=== PATIENT | female | born 1990 | race Caucasian/White ===

== ENCOUNTER 2020-12-19 22:46 | Inpatient (IN) | payer OTHER, MEDICAID, SELFPAY ==
[2020-12-19 23:50] VITALS: BMI 25.0
[2020-12-20 00:26] VITALS: BP 115/65; PULSE 70; RESP 16; TEMP 37; O2SAT 98
--- NOTE | 2020-12-20 02:41 | PC.ADMIT ---
Pt is a 30 years old female, transferred to the Behavioral Health Unit with concerns of SI. TOX negative, Covid negative, VSS, Pt is alert and oriented X3, Pt appears disheveled with grooming and poor hygiene. Pt is calm and cooperative, answers all questions. Speech is clear with normal rhythm. Pt reports overdosing on 50(100mg) seroquel following a post depression. She denies current HI/SI, plan or intent. Pt reports that sleep and appetite has been poor. Pt has a breast pump that is kept at the nurses station.
[2020-12-20 06:00] VITALS: BP 122/79; PULSE 86; RESP 16; TEMP 36.2; O2SAT 98
[2020-12-20] MEDS: Acetaminophen 325 MG TABLET 650 MG PO (10:03)
--- NOTE | 2020-12-20 12:57 | HO.PSYADMNOT ---
HPI Date of Service: 12/20/20 Chief Complaint: Schizophrenia, unspecified Sources of Information: patient interviewed, chart reviewed and crisis/core team assessment reviewed HPI Subjective Notes: Chen Warning and Conditional Voluntary Narrative: Patient is a 30-year-old female with history of schizoaffective disorder currently depressed who presents for worsening depression 3 weeks and ongoing auditory hallucinations and paranoid delusions. Patient reports that prior to getting she was doing overall okay though still depressed. During her pregnancies she would have periodic bouts of depression that lasted at least a week during which time she would smoke feeling she did not care about anything. During these time she continued to have intermittent auditory hallucinations and paranoid thoughts that she was being persecuted by former coworkers. Patient reports that she delivered her baby girl without complications about 3 weeks ago. Since then she has been feeling very depressed, numb and though she has been trying hard to take care of her baby she has felt her mind is in a ?haze... [Her] eyes are burning and [that her] head hurts; her providers have told her that such headaches are most likely due to psychosis since tylenol does not relieve it. Patient was trying to breast-feed but it was a very difficult struggle and she could not produce enough breast milk. Her boyfriend was very upset about this kept pressuring her to breastfeed. Patient started feeling like she was not able to connect very much with her baby. She started feeling like she is not good at being a mother, not doing a good job with her baby or other residential treatment counselor; her mother and brother and sister and friends offered to help but patient has a hard time accepting. Patient is under the delusion that no one really cares about her even though they say they do; she thinks they are likely lying to her. Patient's depression worsened and she took an overdose of Seroquel to end her life prompting this admission. Patient says she concluded that people would be better off without her anyway, including her baby; she still maintains this. Patient explains that about 5 years ago she had a psychotic break and was hospitalized for several weeks. She was started on olanzapine but never took it since she did not like the way it made her felt, overly tired. During that time she started having the delusion that she had done something wrong at her [employer] job which angered her coworkers who have since tried to get back at her and are somehow able to make her feel stupid, give her mental illness and make her life difficult. Patient has no idea what crime she committed but is sure she did something bad and that this is ongoing persecution from these coworkers. Patient has auditory hallucinations that say she is retarded... The mother does not like her... That her father hates her... That she is a child molester... And what did you do to your family to which she is not sure if the references her biological family or [employer] coworkers. Patient reports that both auditory hallucinations and delusional thinking occur even during times when her mood is good and stable. Patient lacks insight and thinks that these delusions are most likely true and has very difficult time entertaining it might be due to the illness; however she does believe she has schizophrenia. Patient also endorses a history of manic episodes where she went 4 days without sleep was talking fast and had a racing mind. Patient denies any alcohol or drug abuse; patient denies any history of trauma. Of note her father sold his house, bought an Jelli and left town, traveling the country this past October, right before patient gave . Patient reports she has only been on Prozac for treatment of depression; said it helped some Past Psychiatric History: last admission January 2020 at [facility] admission 5 years ago for psychotic break Medical Evaluation Reviewed: Hospitalist Sugaral Pending Labs reviewed which are within normal limits including electrolytes, CBC, liver, BUN creatinine, and negative U tox, negative [facility] Medical History (Updated 12/20/20 @ 15:27 by Rajesh Oh MD) Schizoaffective disorder, depressive type Family History: Deferred Social History: Lives with boyfriend who is supportive; she has been together with him for 10 years Mother lives almost next door and is very supportive Has a brother and he is for supportive Patient finished high school; was going to go on to college however decided not to anxious about being away from home Substance History: Denies Trauma History: Denies Diagnostics Vital Signs (24Hr): Vital Signs - 24 hr 12/20/20 00:26 12/20/20 06:00 Temperature 98.6 F 97.1 F Pulse Rate 70 86 Respiratory Rate 16 16 Blood Pressure 115/65 122/79 Pulse Oximetry 98 98 Body Mass Index 25.0 Meds/Allergies Meds Home Medications Acetaminophen (Acetaminophen 325 Mg Tablet) 650 mg PO Q6H PRN PRN Reason: Headache/Pain Mild Scale (1-3) Last Admin: 12/20/20 10:03 Dose: 650 mg Documented by: Al Hydroxide/Mg Hydroxide (Magnesium Hydrox/Alum Hydrox 30 Ml Oral.Susp) 30 ml PO Q6H PRN PRN Reason: Heartburn/Nausea Fluoxetine HCl (Fluoxetine Hcl 20 Mg Capsule) 40 mg PO DAILY IVAN Hydroxyzine HCl (Hydroxyzine Hcl 25 Mg Tablet) 25 mg PO Q6H PRN PRN Reason: Anxiety Magnesium Hydroxide (Milk Of Magnesia 30 Ml Oral.Susp) 30 ml PO DAILY PRN PRN Reason: Constipation Risperidone (Risperidone 1 Mg Tablet) 1 mg PO BID IVAN Trazodone HCl (Trazodone Hcl 50 Mg Tablet) 50 mg PO BEDTIME PRN PRN Reason: Insomnia Allergies Allergies Allergy/AdvReac Type Severity Reaction Status Date / Time No Known Allergies Allergy Unverified 12/20/20 01:18 Mental Status Exam Mental Status Exam Narrative: Pt is alert and oriented; behavior is cooperative, friendly and calm; patient is in emotional distress intermittently tearful; dressed in casual attire with pink hair; adequate hygiene; mood is described as depressed and affect downcast, tearful and anxious; eye contact appropriate; Speech is lowered volume but normal rate and prosody and not pressured; some psychomotor retardation present; thought process is organized and goal directed; Thought content is on delusional content, being persecuted; SI thinking others are better off without her; No HI; AH of voices saying mean things; Patients insight and judgment impaired Assessment & Plan Assessment & Plan (1) Schizoaffective disorder, depressive type: Status: Acute Code(s): F25.1 - Schizoaffective disorder, depressive type Assessment and Plan: IMPRESSION: Patient is a 30-year-old female with history of schizoaffective disorder currently depressed who presents for worsening depression 3 weeks and ongoing auditory hallucinations and paranoid delusions. Patient meets criteria for schizoaffective disorder since her psychotic symptoms are present even during times of good/stable mood; patient also has history of manic episodes. Patient's depression and psychotic symptoms seem to have worsened . Patient was only recently started on Seroquel and a low dose which made her tired. Patient remains with auditory hallucinations and paranoid, persecutory delusions. She volunteers that she has schizophrenia and wants treatment for this, however she currently lacks the insight to connect her psychotic symptoms with her illness and currently believes delusions are true. Patient wants to remain on Prozac saying she used to be at 60 mg and found it helpful to for depression Patient agrees to starting Risperdal. She is concerned about medications that make her tired. Biometric Technician discussed risks and side effects of Risperdal and antipsychotic medications to which patient understands and wants to proceed with trial. Discussed possible trial of Haldol instead of Risperdal since it may be less sedating however patient agreed to Risperdal; considered Abilify and Shonda however opted for higher potency antipsychotic PLAN: Patient on CV Q 15 minutes checks Start Risperdal 1 mg b.i.d.; will likely need to titrate. Patient will try for now and see if it is too sedating; if so recommend switching to Haldol (though Geodon and Abilify are options) Restart Prozac; consider titrating to 60 Discontinue Seroquel; too sedating patient does not like Reason for continued inpatient stay Substantial Risk for: harm to self and rapid decompensation
[2020-12-20] MEDS: risperiDONE 1 MG TABLET PO ×2 (13:26→21:11)
[2020-12-20] MEDS: FLUoxetine HCl 20 MG CAPSULE PO (13:26)
[2020-12-20 18:00] VITALS: BP 109/54; PULSE 63; RESP 15; TEMP 37; O2SAT 98
[2020-12-20 21:08] VITALS: BP 118/70; PULSE 66; RESP 16
[2020-12-21 07:00] VITALS: BMI 24.8
[2020-12-21] MEDS: FLUoxetine HCl 20 MG CAPSULE 40 MG PO (08:50)
[2020-12-21] MEDS: risperiDONE 1 MG TABLET PO ×2 (08:50→21:04)
[2020-12-21 09:55] VITALS: BP 130/69; PULSE 93; TEMP 35.9; O2SAT 98
--- NOTE | 2020-12-21 13:43 | P.CONIM_ITS ---
History of Present Illness Data of Consult Service Date: 12/21/20 Primary Care Provider: Unknown Physician HPI Reason for consult: Routine Medical H&P The patient is a 30 yo F with no significant past medical history who is admitted to the inpatient psychiatric unit. Medical consultation requested for routine Medical H&P per protocol. Patient is seen and examined in her room. She is sitting comfortably reading her book. She denies any current complaints other than a minor upset stomach after eating. She denies any pain , nausea/vomiting. Review of Systems 2 Review of Systems: General - no fevers or chills Cardiovascular - no chest pain Respiratory - no shortness of breath or cough Abdominal- no abdominal pain, nausea, vomiting, diarrhea Yes all other systems are reviewed and are negative (psych ROS per psychiatrist) [facility] Medical History Schizoaffective disorder, depressive type Pertinent family history: mental health in her father Surgical History No pertinent past surgical history Social History Household Members: Friend(s) Household Members Other:: 1 Housing: Apartment Do you presently have visiting nurse or other home services: No Patient Tobacco Use Status: Current someday Tobacco user Tobacco use type: Cigarette Cigarette Packs Per Day: 0 Cigarettes Per Day: 5 Years Smoked: 11 Smoked in Last 30 Days: Yes Patient Interested in Nicotine Replacement: No Patient Given Instructions on How to Stop Smoking: Yes Date Education Initiated: 12/20/20 Second Hand Smoke Exposure: No Use of substances other than those prescribed or required for medical reasons: No Currently Displaying Signs/Symptoms of Drug Intoxication Withdrawal: No Any prior treatment program specific to substance use: No Have you been hit, kicked, punched, or otherwise hurt by someone within the past year? If so, by whom?: No Do you feel safe in your current relationship?: Yes Is there a partner from a previous relationship who is making you feel unsafe now?: No Are you made to feel afraid or neglected: No Spiritual Healthcare Practices: N/A Cheondoism Healthcare Practices: N/A Cultural Healthcare Practices: N/A Advance Directives: No Advance Directives Information Provided: No (declined) Advance Directives on File: No Do you have thoughts of harming others: None Do you have a plan to hurt others: No Plan Recently lost weight without trying: No Nutrition Risks: No Nutritional Risk Patient : No : Yes Poor oral hygiene: No service: No Sexual orientation: Straight/Heterosexual Meds Allergies Allergy/AdvReac Type Severity Reaction Status Date / Time No Known Allergies Allergy Unverified 12/20/20 01:18 Active Medications: Current Medications Acetaminophen (Acetaminophen 325 Mg Tablet) 650 mg PO Q6H PRN PRN Reason: Headache/Pain Mild Scale (1-3) Last Admin: 12/20/20 10:03 Dose: 650 mg Documented by: Al Hydroxide/Mg Hydroxide (Magnesium Hydrox/Alum Hydrox 30 Ml Oral.Susp) 30 ml PO Q6H PRN PRN Reason: Heartburn/Nausea Fluoxetine HCl (Fluoxetine Hcl 20 Mg Capsule) 40 mg PO DAILY [facility] Last Admin: 12/21/20 08:50 Dose: 40 mg Documented by: Hydroxyzine HCl (Hydroxyzine Hcl 25 Mg Tablet) 25 mg PO Q6H PRN PRN Reason: Anxiety Magnesium Hydroxide (Milk Of Magnesia 30 Ml Oral.Susp) 30 ml PO DAILY PRN PRN Reason: Constipation Risperidone (Risperidone 1 Mg Tablet) 1 mg PO BID [facility] Last Admin: 12/21/20 08:50 Dose: 1 mg Documented by: Trazodone HCl (Trazodone Hcl 50 Mg Tablet) 50 mg PO BEDTIME PRN PRN Reason: Insomnia Physical Exam Vital Signs and Narrative: Vital Signs: Last Vital Signs Temp 96.6 F L 12/21/20 09:55 Pulse 93 12/21/20 09:55 Resp 16 12/20/20 21:08 BP 130/69 12/21/20 09:55 Pulse Ox 98 12/21/20 09:55 Body Mass Index 24.8 Const: Other: Constitutional - Awake and Alert, No apparent distress Eyes - PERRLA, EOMI Cardiovascular - S1S2, RRR, No edema Respiratory - Normal lung expansion, Normal respiratory effort, No respiratory distress, CTA bilaterally Gastrointestinal - NT / ND; +BS; No rebound or guarding - No CVA tenderness Extremities - no calf tenderness bilaterally, no swelling Musculoskeletal - Normal inspection, normal ROM Skin - Warm/Dry Neurological - Alert & oriented x3, No focal deficit; CN 2-12 in tact bilaterally Assessment and Plan (1) Routine medical exam: Status: Acute This is a 30 yo F with no significant PMH who is admitted to the inpatient psychiatric unit. Medical consult requested for routine medical H&P per protocol. Patient does not appear to have any chronic nor active medical problems. Continue psychiatric care as you are doing. Have advised patient on age appropriate health screening which she should complete as an outpatient. Will sign off the case. Please reconsult PRN.
[2020-12-21] MEDS: Magnesium Hydrox/Alum Hydrox 30 ML ORAL.SUSP PO (14:23)
--- NOTE | 2020-12-21 17:53 | P.PNPSI_ITS ---
Subjective Subjective Date of Service: 12/21/20 Reason For Visit: Schizophrenia, unspecified Subjective Notes: Conditional Voluntary Interim History: Reports tolerating regime. Frustrated with being admitted as I need to wait for everything. 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 Reports they have been in place for several months are bilateral behind her temples and she feels they have not been in good control. She has relief with pressure and has light sensitivity yet denies migraine. She reports she drinks 2-3 cups of coffee daily and this does not assist with relief of pain, nor does tylenol. Medication Compliance: Yes Side effects from medications: No Attending Groups: Intermittent Review of Systems Acute medical concerns: No Medical Review of Systems: unchanged Review of Systems Constitutional: Reports headache(s) (long term acute care registered nurse, not a med SE) Reports headache(s) (long term acute care registered nurse, not a med SE) Reports headache(s) (assisted, not a med SE) Psychiatric: Reports abnormal sleep pattern, Reports anxiety, Reports depression, Reports difficulty concentrating, Reports hopelessness, Reports irritability, Reports anhedonia and Reports suicidal ideation (reports she is not suicidal on the unit at this time) Mental Status Exam Mental Status Exam Patient Appearance: Appropriate Patient Orientation: Person, Place, Time and Situation Level of Consciousness: Alert Patient Behavior: Appropriate, Talkative, Cooperative and Good Eye Contact Mood Description: Blunted Affect Description: Blunted Patient Cognition Impaired: No Ability to Follow Directions: Good Speech Pattern: Spontaneous Speech Memory Description: Intact Hallucinations: Auditory (denies) Delusions: Not Present Perceptual Disturbances: Derealization Thought Process: Distracted Thought Content: positive for [place], positive for Circumstantial and positive for Suicidal Ideation (denies while in hospital) Depressive Symptoms: Diff. Making Decisions, Unexplained Headaches (my neurologist said it was depression), Increased Fatigue and Loss of Energy Judgement: Fair Diagnostics Vital Signs (24Hr): Vital Signs - 24 hr 12/20/20 18:00 12/20/20 21:08 12/21/20 09:55 Temperature 98.6 F 96.6 F L Pulse Rate 63 66 93 Respiratory Rate 15 16 Blood Pressure 109/54 L 118/70 130/69 Pulse Oximetry 98 98 Body Mass Index 24.8 Medications Medications Current Medications Acetaminophen (Acetaminophen 325 Mg Tablet) 650 mg PO Q6H PRN PRN Reason: Headache/Pain Mild Scale (1-3) Last Admin: 12/20/20 10:03 Dose: 650 mg Documented by: Al Hydroxide/Mg Hydroxide (Magnesium Hydrox/Alum Hydrox 30 Ml Oral.Susp) 30 ml PO Q6H PRN PRN Reason: Heartburn/Nausea Last Admin: 12/21/20 14:23 Dose: 30 ml Documented by: Fluoxetine HCl (Fluoxetine Hcl 20 Mg Capsule) 40 mg PO DAILY [facility] Last Admin: 12/21/20 08:50 Dose: 40 mg Documented by: Hydroxyzine HCl (Hydroxyzine Hcl 25 Mg Tablet) 25 mg PO Q6H PRN PRN Reason: Anxiety Magnesium Hydroxide (Milk Of Magnesia 30 Ml Oral.Susp) 30 ml PO DAILY PRN PRN Reason: Constipation Risperidone (Risperidone 1 Mg Tablet) 1 mg PO BID [facility] Last Admin: 12/21/20 08:50 Dose: 1 mg Documented by: Trazodone HCl (Trazodone Hcl 50 Mg Tablet) 50 mg PO BEDTIME PRN PRN Reason: Insomnia Allergies Allergies Allergy/AdvReac Type Severity Reaction Status Date / Time No Known Allergies Allergy Unverified 12/20/20 01:18 Assessment & Plan Assessment & Plan (1) Schizoaffective disorder, depressive type: Status: Acute Code(s): F25.1 - Schizoaffective disorder, depressive type Assessment and Plan: 30 yo with a hx of schizoaffective disorder, three weeks with increase in paranoia, AH, depression. Risperdal trial initiated and tolerated at this time. Hx of chronic headaches-has OP neuro who has told her these are a symptom of psychiatric related illness. Plan: Continue current regime. Greater than 50% of the session was spent on counseling and/or coordination of care Patient educated on: medication risk/benefits and therapeutic strategies Informed Consent: understands Reason for contiued inpatient stay Substantial Risk for: inability to function and rapid decompensation
[2020-12-21 21:10] VITALS: BP 119/58; PULSE 72; RESP 16; TEMP 36.9; O2SAT 99
[2020-12-22] MEDS: FLUoxetine HCl 20 MG CAPSULE 40 MG PO (09:00)
[2020-12-22] MEDS: risperiDONE 1 MG TABLET PO (09:00)
--- NOTE | 2020-12-22 16:05 | HO.PSYCHPN ---
Subjective Subjective Date of Service: 12/22/20 Reason For Visit: Schizophrenia, unspecified Interim History: Andreina reports tolerating Risperdal and feeling some relief. We discussed titration and she is in agreement, education provided. Also reports improvement of sx of headache. States she is feeling more settled on the unit today. She is visable, interactive with her peers, engaged in activities and reports missing the baby. No SI, HI she is beginning to challenge some of her misperceptions. ADDISON signed and message left with [facility] neurology to discuss eval completed earlier this year regarding headaches. Medication Compliance: Yes Side effects from medications: No Attending Groups: Yes Review of Systems Acute medical concerns: No Medical Review of Systems: unchanged Review of Systems Reports behavioral changes Psychiatric: Reports abnormal sleep pattern, Reports anxiety, Reports behavioral changes, Reports depression, Reports difficulty concentrating, Reports auditory hallucinations and Reports paranoia Mental Status Exam Mental Status Exam Patient Appearance: Appropriate Patient Orientation: Person, Place, Time and Situation Level of Consciousness: Alert Patient Behavior: Appropriate, Talkative, Cooperative and Good Eye Contact Mood Description: Flat Affect Description: Flat Patient Cognition Impaired: No Ability to Follow Directions: Good Speech Pattern: Spontaneous Speech Memory Description: Intact Hallucinations: None Delusions: Paranoid Ideation and Present (symptoms diminishing per pt report) Thought Process: Goal Oriented Thought Content: positive for [place], positive for Circumstantial, positive for Goal Oriented, positive for Suicidal Ideation (denies) and positive for Homicidal Ideation (denies) Depressive Symptoms: Increased Anxiety Judgement: Fair Diagnostics Vital Signs (24Hr): Vital Signs - 24 hr 12/21/20 21:10 Temperature 98.4 F Pulse Rate 72 Respiratory Rate 16 Blood Pressure 119/58 L Pulse Oximetry 99 Body Mass Index 24.8 Medications Medications Current Medications Acetaminophen (Acetaminophen 325 Mg Tablet) 650 mg PO Q6H PRN PRN Reason: Headache/Pain Mild Scale (1-3) Last Admin: 12/20/20 10:03 Dose: 650 mg Documented by: Al Hydroxide/Mg Hydroxide (Magnesium Hydrox/Alum Hydrox 30 Ml Oral.Susp) 30 ml PO Q6H PRN PRN Reason: Heartburn/Nausea Last Admin: 12/21/20 14:23 Dose: 30 ml Documented by: Fluoxetine HCl (Fluoxetine Hcl 20 Mg Capsule) 40 mg PO DAILY IVAN Last Admin: 12/22/20 09:00 Dose: 40 mg Documented by: Hydroxyzine HCl (Hydroxyzine Hcl 25 Mg Tablet) 25 mg PO Q6H PRN PRN Reason: Anxiety Magnesium Hydroxide (Milk Of Magnesia 30 Ml Oral.Susp) 30 ml PO DAILY PRN PRN Reason: Constipation Risperidone (Risperidone 1 Mg Tablet) 1 mg PO BID IVAN Last Admin: 12/22/20 09:00 Dose: 1 mg Documented by: Trazodone HCl (Trazodone Hcl 50 Mg Tablet) 50 mg PO BEDTIME PRN PRN Reason: Insomnia Allergies Allergies Allergy/AdvReac Type Severity Reaction Status Date / Time No Known Allergies Allergy Unverified 12/20/20 01:18 Assessment & Plan Assessment & Plan (1) Schizoaffective disorder, depressive type: Status: Acute Code(s): F25.1 - Schizoaffective disorder, depressive type Assessment and Plan: 30 yo with a hx of schizoaffective disorder, three weeks with increase in paranoia, AH, depression. Risperdal trial initiated and tolerated at this time. Hx of chronic headaches-has OP neuro who has told her these are a symptom of psychiatric related illness. Plan: Continue current regime. 12/22/20: Pt reporting improvement in psychiatric symptoms today and a decrease in headache pain. She is in agreement to titrate Risperdal. Message left for [facility] Neurology to review recent headache evaluation. Increase Risperdal to 1.5 mg bid. Greater than 50% of the session was spent on counseling and/or coordination of care Patient educated on: medication risk/benefits and therapeutic strategies Informed Consent: understands and further education needed Reason for contiued inpatient stay Substantial Risk for: inability to function and rapid decompensation
[2020-12-22 18:00] VITALS: BP 107/58; PULSE 78; TEMP 35.8; O2SAT 98
[2020-12-22] MEDS: risperiDONE 0.5 MG TABLET 1.5 MG PO (20:26)
[2020-12-23 06:00] VITALS: BP 113/65; PULSE 71; RESP 18; TEMP 36.7; O2SAT 98
[2020-12-23] MEDS: FLUoxetine HCl 20 MG CAPSULE 40 MG PO (08:45)
[2020-12-23] MEDS: risperiDONE 0.5 MG TABLET 1.5 MG PO ×2 (08:45→22:55)
[2020-12-23] MEDS: Magnesium Hydrox/Alum Hydrox 30 ML ORAL.SUSP PO (14:58)
[2020-12-23 16:35] VITALS: BP 128/73; PULSE 91; TEMP 36.8
[2020-12-23] MEDS: hydrOXYzine HCL 25 MG TABLET PO (16:59)
--- NOTE | 2020-12-23 22:19 | P.PNPSI_ITS ---
Subjective Subjective Date of Service: 12/24/20 Reason For Visit: Schizophrenia, unspecified Subjective Notes: Conditional Voluntary Interim History: Patient was cooperative depressed somewhat irritable asking about change to Cymbalta from Prozac Medication Compliance: Yes Mental Status Exam Mental Status Exam Patient Appearance: Appropriate Patient Orientation: Person, Place, Time and Situation Level of Consciousness: Alert Patient Behavior: Appropriate, Talkative, Cooperative and Good Eye Contact Mood Description: Depressed and Flat Affect Description: Flat and Apprehensive Patient Cognition Impaired: No Ability to Follow Directions: Good Speech Pattern: Spontaneous Speech Memory Description: Intact Hallucinations: None Delusions: Paranoid Ideation and Present (symptoms diminishing per pt report) Thought Process: Goal Oriented Thought Content: positive for [place], positive for Circumstantial, positive for Goal Oriented, positive for Suicidal Ideation (denies) and positive for Homicidal Ideation (denies) Depressive Symptoms: Increased Anxiety Judgement: Fair Diagnostics Vital Signs (24Hr): Vital Signs - 24 hr 12/23/20 06:00 Temperature 98.0 F Pulse Rate 71 Respiratory Rate 18 Blood Pressure 113/65 Pulse Oximetry 98 Body Mass Index 24.8 Medications Medications Current Medications Acetaminophen (Acetaminophen 325 Mg Tablet) 650 mg PO Q6H PRN PRN Reason: Headache/Pain Mild Scale (1-3) Last Admin: 12/20/20 10:03 Dose: 650 mg Documented by: Al Hydroxide/Mg Hydroxide (Magnesium Hydrox/Alum Hydrox 30 Ml Oral.Susp) 30 ml PO Q6H PRN PRN Reason: Heartburn/Nausea Last Admin: 12/23/20 14:58 Dose: 30 ml Documented by: Fluoxetine HCl (Fluoxetine Hcl 20 Mg Capsule) 40 mg PO DAILY [facility] Last Admin: 12/23/20 08:45 Dose: 40 mg Documented by: Hydroxyzine HCl (Hydroxyzine Hcl 25 Mg Tablet) 25 mg PO Q6H PRN PRN Reason: Anxiety Last Admin: 12/23/20 16:59 Dose: 25 mg Documented by: Magnesium Hydroxide (Milk Of Magnesia 30 Ml Oral.Susp) 30 ml PO DAILY PRN PRN Reason: Constipation Risperidone (Risperidone 0.5 Mg Tablet) 1.5 mg PO BID [facility] Last Admin: 12/23/20 08:45 Dose: 1.5 mg Documented by: Trazodone HCl (Trazodone Hcl 50 Mg Tablet) 50 mg PO BEDTIME PRN PRN Reason: Insomnia Allergies Allergies Allergy/AdvReac Type Severity Reaction Status Date / Time No Known Allergies Allergy Unverified 12/20/20 01:18 Assessment & Plan Assessment & Plan (1) Schizoaffective disorder, depressive type: Status: Acute Code(s): F25.1 - Schizoaffective disorder, depressive type Assessment and Plan: 30 yo with a hx of schizoaffective disorder, three weeks with increase in paranoia, AH, depression. Risperdal trial initiated and tolerated at this time. Hx of chronic headaches-has OP neuro who has told her these are a symptom of psychiatric related illness. Plan: Continue current regime. 12/22/20: Pt reporting improvement in psychiatric symptoms today and a decrease in headache pain. She is in agreement to titrate Risperdal. Message left for [facility] Neurology to review recent headache evaluation. Increase Risperdal to 1.5 mg bid. 12/23/2020 in this setting Discussed with patient possibility of changing Prozac to Cymbalta feels Risperdal is helping discusses history of migraines Denies active self-harm Greater than 50% of the session was spent on counseling and/or coordination of care Reason for contiued inpatient stay Substantial Risk for: harm to self and rapid decompensation
[2020-12-23] MEDS: traZODone HCL 50 MG TABLET PO (22:58)
[2020-12-24 06:00] VITALS: BP 97/55; PULSE 74; RESP 16; TEMP 36.6; O2SAT 97
[2020-12-24] MEDS: Magnesium Hydrox/Alum Hydrox 30 ML ORAL.SUSP PO (08:08)
[2020-12-24] MEDS: risperiDONE 0.5 MG TABLET 1.5 MG PO ×2 (09:45→19:57)
[2020-12-24] MEDS: FLUoxetine HCl 20 MG CAPSULE 40 MG PO (09:45)
[2020-12-24] MEDS: hydrOXYzine HCL 25 MG TABLET PO (09:53)
[2020-12-24 16:02] VITALS: BP 108/56; PULSE 83; TEMP 37.2
--- NOTE | 2020-12-24 22:22 | P.PNPSI_ITS ---
Subjective Subjective Date of Service: 12/24/20 Reason For Visit: Schizophrenia, unspecified Subjective Notes: Conditional Voluntary Interim History: Patient somewhat isolative anxious dysphoric excepted recommendation to cannot switch to Cymbalta at this time Mental Status Exam Mental Status Exam Patient Appearance: Appropriate Patient Orientation: Person, Place, Time and Situation Level of Consciousness: Alert Patient Behavior: Appropriate, Talkative, Cooperative and Good Eye Contact Mood Description: Depressed and Flat Affect Description: Flat and Apprehensive Patient Cognition Impaired: No Ability to Follow Directions: Good Speech Pattern: Spontaneous Speech Memory Description: Intact Hallucinations: None Delusions: Paranoid Ideation and Present (symptoms diminishing per pt report) Thought Process: Goal Oriented Thought Content: positive for [place], positive for Circumstantial, positive for Goal Oriented, positive for Suicidal Ideation (denies) and positive for Homicidal Ideation (denies) Depressive Symptoms: Increased Anxiety Judgement: Fair Diagnostics Vital Signs (24Hr): Vital Signs - 24 hr 12/24/20 06:00 12/24/20 16:02 Temperature 98 F 98.9 F Pulse Rate 74 83 Respiratory Rate 16 Blood Pressure 97/55 L 108/56 L Pulse Oximetry 97 Body Mass Index 24.8 Medications Medications Current Medications Acetaminophen (Acetaminophen 325 Mg Tablet) 650 mg PO Q6H PRN PRN Reason: Headache/Pain Mild Scale (1-3) Last Admin: 12/20/20 10:03 Dose: 650 mg Documented by: Al Hydroxide/Mg Hydroxide (Magnesium Hydrox/Alum Hydrox 30 Ml Oral.Susp) 30 ml PO Q6H PRN PRN Reason: Heartburn/Nausea Last Admin: 12/24/20 08:08 Dose: 30 ml Documented by: Fluoxetine HCl (Fluoxetine Hcl 20 Mg Capsule) 40 mg PO DAILY [facility] Last Admin: 12/24/20 09:45 Dose: 40 mg Documented by: Hydroxyzine HCl (Hydroxyzine Hcl 25 Mg Tablet) 25 mg PO Q6H PRN PRN Reason: Anxiety Last Admin: 12/24/20 09:53 Dose: 25 mg Documented by: Magnesium Hydroxide (Milk Of Magnesia 30 Ml Oral.Susp) 30 ml PO DAILY PRN PRN Reason: Constipation Risperidone (Risperidone 0.5 Mg Tablet) 1.5 mg PO BID [facility] Last Admin: 12/24/20 19:57 Dose: 1.5 mg Documented by: Trazodone HCl (Trazodone Hcl 50 Mg Tablet) 50 mg PO BEDTIME PRN PRN Reason: Insomnia Last Admin: 12/23/20 22:58 Dose: 50 mg Documented by: Allergies Allergies Allergy/AdvReac Type Severity Reaction Status Date / Time No Known Allergies Allergy Unverified 12/20/20 01:18 Assessment & Plan Assessment & Plan (1) Schizoaffective disorder, depressive type: Status: Acute Code(s): F25.1 - Schizoaffective disorder, depressive type Assessment and Plan: 30 yo with a hx of schizoaffective disorder, three weeks with increase in paranoia, AH, depression. Risperdal trial initiated and tolerated at this time. Hx of chronic headaches-has OP neuro who has told her these are a symptom of psychiatric related illness. Plan: Continue current regime. 12/22/20: Pt reporting improvement in psychiatric symptoms today and a decrease in headache pain. She is in agreement to titrate Risperdal. Message left for [facility] Neurology to review recent headache evaluation. Increase Risperdal to 1.5 mg bid. 12/23/2020 in this setting Discussed with patient possibility of changing Prozac to Cymbalta feels Risperdal is helping discusses history of migraines Denies active self-harm 12/24/2020 Continue plan of care no change indicated at this time continue Prozac Risperdal discharge planning Greater than 50% of the session was spent on counseling and/or coordination of care Reason for contiued inpatient stay Substantial Risk for: harm to self and rapid decompensation
[2020-12-25 06:00] VITALS: BP 123/70; PULSE 85; RESP 18; TEMP 36.5; O2SAT 97
[2020-12-25] MEDS: Magnesium Hydrox/Alum Hydrox 30 ML ORAL.SUSP PO (08:01)
[2020-12-25] MEDS: risperiDONE 0.5 MG TABLET 1.5 MG PO ×2 (08:01→20:24)
[2020-12-25] MEDS: FLUoxetine HCl 20 MG CAPSULE 40 MG PO (08:01)
--- NOTE | 2020-12-25 12:42 | HO.PSYCHPN ---
Subjective Subjective Date of Service: 12/25/20 Reason For Visit: Schizophrenia, unspecified Interim History: pt seen on 12/25 Patient reports feeling much better. She says that she overall feels better about everything and is no longer having troubled, negative or self-deprecating thoughts... She says she no longer thinks she is a failure and she is not worried that the people in her life do not care about her; referring to the concern that her past coworkers were conspiring against her, patient says she does not really have these thoughts anymore. Patient denies any SI and denies AVH. She reports she is sleeping well and that her headache, which remains is better. Patient reports she has had good discussions with her mother was visited the unit. She has yet to talk to her boyfriend however and is a little anxious about it given his pressure for her to breastfeed. However feels she's getting near ready for discharge and agrees that it would be a good idea for her to talk with him first, which she plans to do.. Patient would like her Prozac increased back to 60 mg which she says she was doing well on in the past and to which typewriter tester agrees. She would also like to switch her Risperdal to bedtime since she is having some daytime grogginess. Mental Status Exam Mental Status Exam Narrative: Pt is alert and oriented; behavior is cooperative, friendly and calm; patient is not in any distress; casually dressed with adequate hygiene; mood is described as? good and affect congruent, warm, brighter; eye contact appropriate; Speech is normal volume, rate and prosody; not pressured; no psychomotor retardation/agitation present; thought process is organized, linear and goal directed;? Thought content is on discharge and progress made; no delusional content; no paranoid thinking; denies any SI/HI; denies any AVH; Patients insight and judgment are fair Diagnostics Vital Signs (24Hr): Vital Signs - 24 hr 12/24/20 16:02 12/25/20 06:00 Temperature 98.9 F 97.7 F Pulse Rate 83 85 Respiratory Rate 18 Blood Pressure 108/56 L 123/70 Pulse Oximetry 97 Body Mass Index 24.8 Medications Medications Current Medications Acetaminophen (Acetaminophen 325 Mg Tablet) 650 mg PO Q6H PRN PRN Reason: Headache/Pain Mild Scale (1-3) Last Admin: 10/13/21 10:03 Dose: 650 mg Documented by: Al Hydroxide/Mg Hydroxide (Magnesium Hydrox/Alum Hydrox 30 Ml Oral.Susp) 30 ml PO Q6H PRN PRN Reason: Heartburn/Nausea Last Admin: 12/25/20 08:01 Dose: 30 ml Documented by: Fluoxetine HCl (Fluoxetine Hcl 20 Mg Capsule) 60 mg PO DAILY [facility] Hydroxyzine HCl (Hydroxyzine Hcl 25 Mg Tablet) 25 mg PO Q6H PRN PRN Reason: Anxiety Last Admin: 12/24/20 09:53 Dose: 25 mg Documented by: Magnesium Hydroxide (Milk Of Magnesia 30 Ml Oral.Susp) 30 ml PO DAILY PRN PRN Reason: Constipation Risperidone (Risperidone 0.5 Mg Tablet) 1.5 mg PO BID [facility] Stop: 12/25/20 23:59 Last Admin: 12/25/20 08:01 Dose: 1.5 mg Documented by: Risperidone (Risperidone 3 Mg Tablet) 3 mg PO BEDTIME [facility] Trazodone HCl (Trazodone Hcl 50 Mg Tablet) 50 mg PO BEDTIME PRN PRN Reason: Insomnia Last Admin: 12/23/20 22:58 Dose: 50 mg Documented by: Allergies Allergies Allergy/AdvReac Type Severity Reaction Status Date / Time No Known Allergies Allergy Unverified 12/20/20 01:18 Assessment & Plan Assessment & Plan (1) Schizoaffective disorder, depressive type: Status: Acute Code(s): F25.1 - Schizoaffective disorder, depressive type Assessment and Plan: 30 yo with a hx of schizoaffective disorder, three weeks with increase in paranoia, AH, depression. Risperdal trial initiated and tolerated at this time. Hx of chronic headaches-has OP neuro who has told her these are a symptom of psychiatric related illness. Plan: Continue current regime. 12/22/20: Pt reporting improvement in psychiatric symptoms today and a decrease in headache pain. She is in agreement to titrate Risperdal. Message left for [facility] Neurology to review recent headache evaluation. Increase Risperdal to 1.5 mg bid. 12/23/2020 in this setting Discussed with patient possibility of changing Prozac to Cymbalta feels Risperdal is helping discusses history of migraines Denies active self-harm 12/24/2020 Continue plan of care no change indicated at this time continue Prozac Risperdal discharge planning Patient gave verbal permission for typewriter tester to talk with her mother which was said in presence of a staff as a witness Mask Design Engineer did speak with Patient's mother who thinks patient is doing much better and probably ready to go home soon. Patient has stabilized well and SI and depression have remained resolved; patient is paranoid and delusional thinking have also resolved as has all AH. Patient's mood is significantly better and she reports no self deprecating, negative thoughts. She is future oriented and looking for to getting back home to see her baby and boyfriend. Patient has yet to talk to her boyfriend since admission and she agrees that this is an important step prior to discharge. However patient is not in imminent risk for harm to self or others and is likely appropriate for discharge. PLAN: Increase Prozac to 60m patient's former home dose Switch patient's Risperdal to dosing at bedtime due to daytime grogginess Greater than 50% of the session was spent on counseling and/or coordination of care Reason for contiued inpatient stay Substantial Risk for: stable for discharge
[2020-12-25] MEDS: hydrOXYzine HCL 25 MG TABLET PO (12:53)
[2020-12-25] MEDS: FLUoxetine HCl 20 MG CAPSULE PO (12:53)
[2020-12-25 18:00] VITALS: BP 120/60; PULSE 70
[2020-12-26 06:00] VITALS: BP 120/69; PULSE 80; RESP 18; TEMP 36.2; O2SAT 97
[2020-12-26] MEDS: FLUoxetine HCl 20 MG CAPSULE 60 MG PO (08:43)
--- NOTE | 2020-12-26 09:58 | PM.PSYDC ---
DS: Providers Provider Date of Service: 12/26/20 Date of admission: 12/19/20 22:46 Date of discharge: 12/26/20 Primary care physician: Unknown Physician Attending physician on admission: Rajesh Oh Consults: 12/20/20 01:18 Consult to Hospitalist Routine Consulting Provider: Hospitalist Reason For Exam: new admit from [facility] Attending physician on discharge: Rajesh Oh DS: Diagnosis Discharge Diagnosis (1) Schizoaffective disorder, depressive type: Status: Chronic DS: Medications Discharge Medications Home Medications: Previous Rx's Medication Instructions Recorded fluoxetine 20 mg capsule 60 mg PO DAILY 30 Days #90 cap 12/26/20 hydroxyzine HCl 25 mg tablet 25 mg PO Q6H PRN 30 Days #30 tab 12/26/20 risperidone 3 mg tablet 3 mg PO BEDTIME 30 Days #30 tab 12/26/20 Mental Status Exam Mental Status Exam Narrative: Pt is alert and oriented; behavior is cooperative, friendly and calm; patient is not in any distress; casually dressed with adequate hygiene; mood is described as? good ? and affect congruent, warm, bright; eye contact appropriate; Speech is normal volume, rate and prosody; not pressured; no psychomotor retardation/agitation present; thought process is organized, linear and goal directed;? Thought content is on discharge, getting back to her family; no delusional content; no paranoid thinking; denies any SI/HI; denies any AVH; Patients insight and judgment are intact. DS: Summary Hospital Course Hospital Course: Pt is a 30 yo with a hx of schizoaffective disorder, three weeks with increase in paranoia, AH, depression who presents to ED following suicide attempt by overdose on Seroqeul. On admission pt endorsed depression, with passive SI (active SI resolved), AH and paranoid delusions. She also c/o headache that she said was associated with psychotic symptoms. Pt was continued on Prozac (which was eventually titrated to 60mg, her past home dose) and she was started on Rispderdal to good effect. After a few days, pt's depression and SI resolved and her mood significantly improved. Pt's AH fully resolved as did her paranoid delusions and her headache subsided. Pt was cooperative, attended groups. Pt has supportive family with whom she was in contact during admission. Pt talked with her boyfriend who was apologetic about pressuring her to breast feed and patient was eager to return home to her baby and boyfriend. Pt asked for discharge. Forest Resources Professor spoke with Patient's mother who also felt that patient was doing much better and ready to go home. She was in good mood and SI, AH, Paranoid thinking and depression remain resolved. She is future oriented wanting to get back to her child and family. Pt has supportive family including her mother, brother and [id number] who visit frequently and help her with childcare. Pt is not in imminent risk for harm to self or others and her request for discharge is honored. Status at Discharge Functional status at discharge: independent ambulation Overall status at discharge: patient is back to baseline Time Spent with Patient Time attestation: Total time spent providing and/or coordinating discharge services: Discharge Plan Discharge Patient Disposition: Home, Self-Care Discharge Diagnosis: Schizoaffective disorder, depressed type in full remission Referrals: Bibiana Davis [Other] - 04/10/21 (Patient scheduled psychiatry appointment [facility] seeking to provide patient with bridge appointment as she is set to discharge from inpatient behavioral health unit. ) Kasandra Golden, ZOILA [Nurse Practitioner] - 12/29/20 12:20 pm (IN OFFICE) Discharge Medications: New fluoxetine 20 mg Capsule 60 mg PO DAILY 30 Days Qty: 90 RF: 1 hydroxyzine HCl 25 mg Tablet 25 mg PO Q6H PRN (Reason: Anxiety) 30 Days Qty: 30 RF: 0 risperidone 3 mg Tablet 3 mg PO BEDTIME 30 Days Qty: 30 RF: 1 Discharge Orders: Discharge Order (Routine); Ordered 12/26/20 Ordered By: Rajesh Oh Diet: regular diet Activity on Discharge: As tolerated Stand Alone Forms: Patient Portal Discharge page Care Plan Goals: Maintain mood and safe behaviors Take medications as prescribed Practice coping skills Continue with outpatient providers and reach out to them as needed Health Concerns: Mood stability and behaviors Plan of Treatment: Follow up with your psychiatric provider and other outpatient providers regarding above concerns Take medications as prescribed Assessment: Risk assessment at time of discharge:? Patient was interviewed prior to discharge and found to be fully oriented and without any SI or HI. Patient has insight and demonstrates good judgment in terms of wanting to pursue treatment. Patient is not in imminent risk of harm to self or others and has a safety plan that includes presenting to the closest ER or calling 911 if feeling unsafe.? Patient has been observed closely by nursing and unit staff throughout admission; patient has not engaged in any behaviors that suggest dangerousness to self or others and has demonstrated appropriate behaviors and impulse control
== END 2020-12-26 13:55 | disposition home or self-care (01) | DRG 776 ==
PROVIDERS: Admitting Provider Psychiatry & Neurology Psychiatry; Visit Provider Psychiatry & Neurology Psychiatry
DX: O99.345 Other mental disorders complicating the puerperium (principal); F25.1 Schizoaffective disorder, depressive type; O99.335 Smoking (tobacco) complicating the puerperium; F17.210 Nicotine dependence, cigarettes, uncomplicated; Z71.6 Tobacco abuse counseling; Z79.899 Other long term (current) drug therapy